=== PATIENT | male | born 1970 | race Caucasian/White ===

== ENCOUNTER → 2017-09-28 12:49 | Outpatient (CLI) | payer OTHER ==
[~2017-09-28] VITALS: Ht 152.4 cm; Wt 88.5 kg
[~2017-09-28 12:49] MED LIST: CATAFLAM50 MG PO; FLONASE16 GM NS; GILTUSS TR TAB1 EACH PO; TESSALON PERLE100 MG PO; TOBREX5 ML OP; ZITHROMAX TRI-500 MG PO; ZITHROMAX500 MG PO; ZYRTEC10 MG PO
== END | disposition home or self-care (01) ==
LOC: PPHC 12:49
DX: H53.30 Unspecified disorder of binocular vision (principal)

== ENCOUNTER → 2017-12-08 | Outpatient (CLI) | payer OTHER | END | disposition home or self-care (01) | LOC: PPHC 07:56 | DX: J06.9 Acute upper respiratory infection, unspecified (principal) ==

== ENCOUNTER 2018-03-09 07:10 | Outpatient (CLI) | payer OTHER | END 2018-03-09 07:22 | disposition home or self-care (01) | LOC: LAB 07:10 | DX: Z12.5 Encounter for screening for malignant neoplasm of prostate (principal); R42 Dizziness and giddiness; R51 Headache; Z11.3 Encounter for screening for infections with a predominantly sexual mode of transmission ==

== ENCOUNTER 2018-03-21 14:38 | Emergency (ER) | payer OTHER ==
[~2018-03-21] VITALS: Ht 167.6 cm; Wt 88.5 kg
== END 2018-03-21 19:51 | disposition home or self-care (01) ==
LOC: ER 14:38
DX: S81.812A Laceration without foreign body, left lower leg, initial encounter (principal); W45.8XXA Other foreign body or object entering through skin, initial encounter; Y93.89 Activity, other specified; Y92.89 Other specified places as the place of occurrence of the external cause; Y99.8 Other external cause status

== ENCOUNTER 2019-07-10 12:39 | Outpatient (CLI) | payer OTHER | END 2019-07-10 12:43 | disposition home or self-care (01) | LOC: LAB 12:39 | DX: J11.1 Influenza due to unidentified influenza virus with other respiratory manifestations (principal); J20.0 Acute bronchitis due to Mycoplasma pneumoniae ==

== ENCOUNTER → 2019-11-02 09:19 | Outpatient (CLI) | payer OTHER | END | disposition home or self-care (01) | LOC: LAB 09:19 | DX: J11.1 Influenza due to unidentified influenza virus with other respiratory manifestations (principal); J06.9 Acute upper respiratory infection, unspecified ==

== ENCOUNTER 2019-11-02 12:32 | Emergency (ER) | payer OTHER ==
[~2019-11-02] VITALS: Ht 170.2 cm; Wt 88.5 kg
== END 2019-11-02 14:47 | disposition home or self-care (01) ==
LOC: ER 12:32
DX: R03.0 Elevated blood-pressure reading, without diagnosis of hypertension (principal); B96.0 Mycoplasma pneumoniae [M. pneumoniae] as the cause of diseases classified elsewhere; T44.4X5A Adverse effect of predominantly alpha-adrenoreceptor agonists, initial encounter; Y92.89 Other specified places as the place of occurrence of the external cause

== ENCOUNTER 2020-04-24 16:20 | Outpatient (CLI) | payer OTHER ==
[2020-06-26] MEDS ORDERED: DICLOFENAC POTA50 MG PO (16:52)
[2020-06-26] MEDS ORDERED: SKELAXIN800 MG PO (16:52)
== END 2020-04-24 18:00 | disposition home or self-care (01) ==
LOC: CERTIFICAD 16:20 → LAB 16:20 → CERTIFICAD 18:00
PROVIDERS: ATTEND Family Medicine
DX: Z11.1 Encounter for screening for respiratory tuberculosis (principal)

== ENCOUNTER 2020-06-04 13:00 | Outpatient (CLI) | payer OTHER ==
[2020-06-26] MEDS ORDERED: SKELAXIN800 MG PO (16:52)
[2020-06-26] MEDS ORDERED: DICLOFENAC POTA50 MG PO (16:52)
== END 2020-06-04 15:00 | disposition home or self-care (01) ==
LOC: PPH VACUNA 13:00
DX: Z23 Encounter for immunization (principal)

== ENCOUNTER → 2020-06-27 17:23 | Outpatient (CLI) | payer OTHER ==
[~2020-06-27 17:23] MED LIST changes: +DICLOFENAC POTA50 MG PO; +SKELAXIN800 MG PO
== END | disposition home or self-care (01) ==
LOC: RAD 16:26
PROVIDERS: ATTEND Physical Medicine & Rehabilitation
DX: M25.561 Pain in right knee (principal); M25.562 Pain in left knee; M54.2 Cervicalgia

== ENCOUNTER 2020-07-19 07:15 | Outpatient (CLI) | payer OTHER | END 2020-07-19 07:24 | disposition home or self-care (01) | LOC: LAB 07:15 | DX: Z00.01 Encounter for general adult medical examination with abnormal findings (principal) ==

== ENCOUNTER 2020-08-01 14:50 | Outpatient (CLI) | payer OTHER | END 2020-08-01 15:00 | disposition home or self-care (01) | LOC: RAD 14:50 | DX: R07.89 Other chest pain (principal) ==

== ENCOUNTER 2020-08-19 07:56 | Outpatient (CLI) | payer OTHER | END 2020-08-19 08:08 | disposition home or self-care (01) | LOC: LAB 07:56 | DX: L03.031 Cellulitis of right toe (principal); K11.6 Mucocele of salivary gland ==